=== PATIENT | female | born 1950 | race Caucasian/White ===

== ENCOUNTER 2019-04-03 15:13 | Emergency (ER) | payer MEDICARE, OTHER ==
[2019-04-03] MEDS ORDERED: Sodium Chloride 0.9% 10 ML Syringe FLUSH PRN (15:46)
[2019-04-03 16:05] VITALS: BP 138/89; PULSE 72
[2019-04-03] MEDS ORDERED: Sodium Chloride 0.9% 1,000 ML IV SCH (16:30)
[2019-04-03] MEDS ORDERED: Potassium Chloride 20 MEQ Tab.ER PO ONE (16:30)
[2019-04-03] MEDS ORDERED: Iopamidol 755 Mg/ML 100 ML Bottle IV ONE (17:19)
--- NOTE | 2019-04-03 18:39 | CT ---
INDICATION: Epigastric and right upper quadrant pain. CT ABDOMEN AND PELVIS WITH CONTRAST: 86 cc at 2 cc/second with sagittal and coronal reconstructions 04/03/19 and compared with 08/17/16. Total exam DLP was 318.86 mGy-cm. The lower lung kemp and pleural spaces visualized showed some atelectatic and/ or fibrotic changes at the left lower lobe. There appears to be some minimal pleural thickening at the right lung base medially which may be slightly calcified raising question of a process such as asbestosis. Similar less prominent appearance is noted on the left. It is difficult to entirely exclude minimal patchy pneumonia in the left lower lobe in that area. The heart is enlarged compared with the previous examination with some valvular and coronary artery calcifications noted. Another new finding is what appears to be a moderate size fixed hiatal hernia. In this apparent hiatal hernia, there is marked thickening of the wall raising question of a neoplastic process at and below the diaphragm as well as above the diaphragm. Direct visualization may be warranted. This is a new finding compared with the previous study of 2017 also. The gallbladder showed evidence of calculi with some loculated densities within it, raising question of cholecystitis. This should be correlated clinically. The gallbladder did appear to be slightly enlarged, measuring approximately 94 mm. The common bile duct did not appear grossly enlarged. Intrahepatic biliary tree appeared fairly normal. The appearance of the gallbladder is somewhat similar to the previous examination from 2017. The liver was essentially unremarkable otherwise. The adrenal glands appeared normal. The renal pelves were somewhat prominent bilaterally. No definite obstructive uropathy was suggested. The kidneys overall appeared normal with perhaps a tiny cystic change in each kidney. Two tiny cysts were present previously in the mid pole lateral cortex of the right kidney with 1 posteriorly in the mid pole of the left kidney, also present previously. The kidneys were otherwise unremarkable. The spleen and pancreas appeared normal. No definite retroperitoneal mass was seen. Additionally in the pelvis, there is a short segment of bowel with markedly thickened wall and a very irregular lumen seen on coronal image 42 as well as other coronal images and also on sagittal image 57 as well as other sagittal images. This also has the appearance of a neoplastic process, likely cancer. This appears to be a portion of a loop of ileum just above the urinary bladder. There is an appearance that is new of thickening of the wall of the terminal ileum at the cecum. Whether this represents a neoplastic or an inflammatory process is difficult to determine. Neoplasia is felt to be more likely with the other findings in this patient. The appendix appeared normal, visualized on coronal images 26-36 and sagittal images 31 and 32. The uterus is absent, compatible with history of its removal. Dextroconvex scoliosis of the lumbar spine of moderate degree is noted. Degenerative disk disease is noted at L3-4 and L5-S1 with grade 1 anterolisthesis at L3-4. Calcifications are noted in the abdominal aorta, proximal renal arteries, iliac and femoral arteries. Urinary bladder appeared normal. IMPRESSION: 1. Pleuroparenchymal changes at the left lung base may represent fibrosis or minimal patchy pneumonia and pleuritis could also be present as well as asbestosis with thickening of the pleural space posteriorly medially. Less prominent pleural thickening is noted at the right medial lung base posteriorly. 2. Interval apparent formation of a hiatal hernia, but with marked thickening of the wall raising question of malignancy - neoplastic process. Direct visualization would be confirmatory, as necessary. 3. Interval development of cardiomegaly with coronary artery calcifications again seen and aortic valvular calcifications suggested. 4. Short segment of a loop of what appears to be distal ileum which has markedly thickened wall and the appearance suggesting a neoplastic process. In light of the finding at the distal esophagus, would raise question of metastatic disease in these locations. Additionally, there is thickened wall of the terminal ileum having a similar appearance and also raising question of neoplastic process. Colonoscopy might be of further diagnosis benefit in this area due to its presence at the ileocecal junction. 5. ASD. 6. Scoliosis. 7. Degenerative disk disease and mild hypertrophic degenerative changes mainly at L3-4. 8. Post hysterectomy. 9. Tiny left inguinal hernia, including only fat. 10. Abnormal gallbladder, slightly enlarged with what appear to be septations and some calcification - calculi suggested. 11. Minimal cystic changes kidneys. Report called to Dr. Swift at 1804 hours. [facility]
[2019-04-03] MEDS ORDERED: LORazepam 1 MG Tab PO ONE (18:45)
--- NOTE | 2019-04-03 18:52 | EDM.PDOC ---
ED HPI GENERAL MEDICAL PROBLEM - General Chief Complaint: General Stated Complaint: abdominal pain and COUGH Time Seen by Provider: 04/03/19 15:35 Source of Information: Reports: Patient History Limitations: Reports: No Limitations - History of Present Illness INITIAL COMMENTS - FREE TEXT/NARRATIVE: Patient presented to the ED with her because of epigastric and RUQ pain which started 2 weeks ago. There is no associated nausea or vomiting. Patient's said that it hurts especially after ingestion of food or her medicines. there is no associated changes in bowel movements or urinary symptoms.H/P taking is somewhat difficult because of patient's dementia. epigastric Pain Score (Numeric/FACES): 3 - Related Data Allergies Allergy/AdvReac Type Severity Reaction Status Date / Time lidocaine Allergy Itching Verified 04/03/19 15:49 lisinopril Allergy Swelling Verified 04/03/19 15:49 terbinafine HCl Allergy Hives Verified 04/03/19 15:49 [From Lamisil] Home Meds: Home Meds Donepezil HCl 10 mg PO BEDTIME 05/04/15 [History] amLODIPine Besylate [Amlodipine Besylate] 10 mg PO DAILY 05/04/15 [History] Calcium Carbonate 600 mg PO DAILY 04/03/19 [History] Carboxymethylcellulose Sodium [Refresh Tears 0.5% Ophth Soln] 1 drop OP BID [History] Cholecalciferol (Vitamin D3) [Vitamin D] 5,000 unit PO ASDIRECTED 04/03/19 [ History] LORazepam [Ativan] 1 mg PO Q8H PRN #15 tablet 04/03/19 [Rx] Latanoprost 1 drop OP BEDTIME 04/03/19 [History] Melatonin 5 mg PO BEDTIME 04/03/19 [History] Memantine HCl 10 mg PO BID 04/03/19 [History] Omeprazole 20 mg PO DAILY 04/03/19 [History] Sertraline [Zoloft] 50 mg PO DAILY 04/03/19 [History] Timolol [Betimol] 1 drop EYEBOTH DAILY 04/03/19 [History] Tolterodine Tartrate [Detrol LA] 2 mg PO DAILY 04/03/19 [History] levETIRAcetam [Levetiracetam] 750 mg PO DAILY 12/18/19 [History] Past Medical History HEENT History: Reports: Impaired Vision Cardiovascular History: Reports: Hypertension Gastrointestinal History: Reports: GERD, PUD Musculoskeletal History: Reports: Osteoarthritis Neurological History: Reports: Alzheimers Disease Other Neuro History: dementia Psychiatric History: Reports: Anxiety, Dementia, Depression - Infectious Disease History Infectious Disease History: Reports: Chicken Pox, Measles, Shingles - Past Surgical History Female Surgical History: Reports: Hysterectomy Other Female Surgeries/Procedures: A&P repair x 2 Musculoskeletal Surgical History: Reports: Other (See Below) Social & Family History - Family History HEENT: Reports: None Cardiac: Reports: None Respiratory: Reports: None GI: Reports: None Neurological: Reports: None Endocrine/Metabolic: Reports: None - Tobacco Use Smoking Status *Q: Never Smoker - Caffeine Use Caffeine Use: Reports: None - Recreational Drug Use Recreational Drug Use: No ED ROS GENERAL - Review of Systems Review Of Systems: See Below Constitutional: Reports: No Symptoms HEENT: Reports: No Symptoms Respiratory: Reports: No Symptoms Cardiovascular: Reports: No Symptoms Endocrine: Reports: No Symptoms GI/Abdominal: Reports: Abdominal Pain. Denies: Nausea, Vomiting : Reports: No Symptoms Musculoskeletal: Reports: No Symptoms Skin: Reports: No Symptoms Psychiatric: Reports: Agitation Hematologic/Lymphatic: Reports: No Symptoms ED EXAM, GENERAL - Physical Exam Exam: See Below Exam Limited By: No Limitations General Appearance: Anxious Eye Exam: Bilateral Eye: Proptosis Ears: Normal External Exam, Normal Canal, Hearing Grossly Normal, Normal TMs Nose: Normal Inspection, Normal Mucosa, No Blood Throat/Mouth: Normal Inspection, Normal Lips, Normal Teeth, Normal Gums, Normal Oropharynx, Normal Voice, No Airway Compromise Head: Atraumatic, Normocephalic Neck: Normal Inspection, Supple, Non-Tender Respiratory/Chest: No Respiratory Distress, Lungs Clear, Normal Breath Sounds, No Accessory Muscle Use, Chest Non-Tender Cardiovascular: Normal Peripheral Pulses, Regular Rate, Rhythm, No Edema, No Gallop, No JVD, No Murmur GI/Abdominal: Normal Bowel Sounds, Soft, No Organomegaly, No Distention, No Abnormal Bruit, Other (epigastric and RUQ tenderness) Course - Vital Signs Text/Narrative:: labs and Abdominal CT result was discussed with patient and her CT abd/pelvis-see result K+-3.2 replaced with Klor con 40 meq po x1 NS 1 L bolus Ativan 1 mg po x1 Last Recorded V/S: Last Vital Signs Temp 36.4 C 04/03/19 15:20 Pulse 72 04/03/19 15:20 Resp 16 04/03/19 15:20 BP 138/89 04/03/19 15:20 Pulse Ox 99 04/03/19 15:20 - Orders/Labs/Meds Orders: Active Orders 24 hr Category Date Time Status UA W/MICROSCOPIC [URIN] Stat Lab 04/03/19 15:46 Ordered Saline Lock Insert [OM.PC] Routine Oth 04/03/19 15:46 Ordered Labs: Laboratory Tests 04/03/19 04/03/19 04/03/19 Range/Units 15:56 15:56 15:56 WBC 9.1 (4.5-12.0) X10-3/uL RBC 4.21 (3.23-5.20) x10(6)uL Hgb 13.6 (11.5-15.5) g/dL Hct 39.3 (30.0-51.3) % MCV 93.5 (80-96) fL MCH 32.3 (27.7-33.6) pg MCHC 34.6 (32.2-35.4) g/dL RDW 13.8 (11.5-15.5) % Plt Count 315 (125-369) X10(3)uL MPV 8.2 (7.4-10.4) fL Neut % (Auto) 61.2 (46-82) % Lymph % (Auto) 29.6 (13-37) % [place] % (Auto) 6.9 (4-12) % Eos % (Auto) 2 (1.0-5.0) % Baso % (Auto) 1 (0-2) % Neut # (Auto) 5.6 (1.6-8.3) # Lymph # (Auto) 2.7 (0.6-5.0) # [place] # (Auto) 0.6 (0.0-1.3) # Eos # (Auto) 0.2 (0.0-0.8) # Baso # (Auto) 0.0 (0.0-0.2) # Sodium 145 (135-145) mmol/L Potassium 3.2 L (3.5-5.3) mmol/L Chloride 107 (100-110) mmol/L Carbon Dioxide 29 (21-32) mmol/L BUN 15 (7-18) mg/dL Creatinine 1.0 (0.55-1.02) mg/dL Est Cr Clr Drug Dosing 44.10 mL/min Estimated GFR (MDRD) 55 L (>60) BUN/Creatinine Ratio 15.0 (9-20) Glucose 102 (80-116) mg/dL Calcium 8.5 L (8.6-10.2) mg/dL Total Bilirubin 0.3 (0.1-1.3) mg/dL AST 33 H (5-25) IU/L ALT 46 H (12-36) U/L Alkaline Phosphatase 94 (56-112) IU/L Total Protein 6.5 (6.0-8.0) g/dL Albumin 3.4 (3.2-4.6) g/dL Globulin 3.1 g/dL Albumin/Globulin Ratio 1.1 Amylase 59 (25-115) U/L Lipase 177 (73-393) U/L Meds: Medications Discontinued Medications Generic Name Dose Route Start Last Admin Trade Name Freq PRN Reason Stop Dose Admin Sodium Chloride 1,000 mls @ 999 mls/hr 04/03/19 16:30 04/03/19 16:40 Normal Saline IV 999 mls/hr ASDIRECTED DIGNA Administration Iopamidol 100 ml 04/03/19 17:19 04/03/19 17:37 Isovue-370 (76%) IV 04/03/19 17:20 86 ml ONETIME ONE Administration Lorazepam 1 mg 04/03/19 18:45 04/03/19 19:00 Ativan PO 04/03/19 18:46 1 mg ONETIME ONE Administration Potassium Chloride 40 meq 04/03/19 16:30 04/03/19 16:40 Klor-Con M20 PO 04/03/19 16:31 40 meq ONETIME ONE Administration Sodium Chloride 10 ml 04/03/19 15:46 04/03/19 16:40 Saline Flush FLUSH 10 ml ASDIRECTED PRN Administration Keep Vein Open Departure - Departure Time of Disposition: 18:50 Disposition: Home, Self-Care 01 Condition: Good Clinical Impression: Abdominal pain, Agitation, Hypokalemia Dementia Qualifiers: Dementia type: Alzheimer's disease - Discharge Information Prescriptions: LORazepam [Ativan] 1 mg PO Q8H PRN #15 tablet PRN Reason: Anxiety Instructions: Abdominal Pain, Adult, [id number], Alzheimer Disease Caregiver Guide, [id number] Referrals: Estelle Manzano, [employer] [Primary Care Provider] - Forms: ED Department Discharge Additional Instructions: please read discharge instructions on abdominal pain and agitation fro dementia keep your appointment with the hospice nurse tomorrow ativan 1 mg every 8 hours as needed for anxiety and agitation follow up with your medical provider this coming week Sepsis Event Note - Evaluation Sepsis Screening Result: No Definite Risk - Focused Exam Vital Signs: Vital Signs Temp Pulse Resp BP Pulse Ox 04/03/19 15:20 36.4 C 72 16 138/89 99 Date Exam was Performed: 04/03/19 Time Exam was Performed: 21:40 - My Orders Last 24 Hours: My Active Orders 04/03/19 15:46 UA W/MICROSCOPIC [URIN] Stat Saline Lock Insert [OM.PC] Routine - Assessment/Plan Last 24 Hours: My Active Orders 04/03/19 15:46 UA W/MICROSCOPIC [URIN] Stat Saline Lock Insert [OM.PC] Routine
--- NOTE | 2019-04-03 19:09 | CR ---
INDICATION: Cough x2 weeks. CHEST TWO VIEWS: AP views x2 and a lateral view of the chest were obtained and compared with 04/26/10 revealing the heart to be enlarged in appearance compared with the previous study. The aorta is tortuous with calcification. Pleuroparenchymal changes are suggested at the left lung base with blunting of the posterior sulcus and some minimal infiltrate and/or atelectasis in that area. There is a minimal compression fracture at the lower thoracic spine which appears new but is not well visualized. MTDD
== END 2019-04-03 19:19 | disposition home or self-care (01) ==
LOC: FB.ED 15:13
DX: R10.13 Epigastric pain (principal); R45.1 Restlessness and agitation; E87.6 Hypokalemia; G30.9 Alzheimer's disease, unspecified; F02.80 Dementia in other diseases classified elsewhere, unspecified severity, without behavioral disturbance, psychotic disturbance, mood disturbance, and anxiety; I10 Essential (primary) hypertension; F41.9 Anxiety disorder, unspecified; K21.9 Gastro-esophageal reflux disease without esophagitis; F32.9 Major depressive disorder, single episode, unspecified; Z79.899 Other long term (current) drug therapy; Z88.8 Allergy status to other drugs, medicaments and biological substances
CPT/HCPCS: 36415; 71046; 74177; 80053; 82150; 83690; 85025; 96360; 99284; A9270; J7030; Q9967; 99283